=== PATIENT | female | born 1960 | race Caucasian/White ===

== ENCOUNTER 2018-09-05 09:18 | Observation (INO) | payer MEDICARE ==
--- NOTE | 2018-08-20 10:02 | HP ---
PREOPERATIVE HISTORY AND PHYSICAL: DATE OF ADMISSION/SURGERY: 09/05/18 DATE OF OFFICE VISIT: 08/17/18 ATTENDING SURGEON: Dr. Anh White.* (DICTATED BY IRIS AMES) PROCEDURE: Right shoulder arthroscopic rotator cuff repair, decompression and debridement and right wrist open carpal tunnel release. CHIEF COMPLAINT: Right shoulder pain. HISTORY OF PRESENT ILLNESS: Viola is a 57-year-old female who presents to the clinic for right shoulder pain due to a rotator cuff tear. She has had a prior repair in the past. She also has right carpal tunnel syndrome. She has failed conservative measures, therefore agreed to undergo a right shoulder arthroscopic rotator cuff repair, decompression and debridement and right wrist open carpal tunnel release with Dr. White on 09/05/18. 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 PAST SURGICAL HISTORY: Tubal ligation, hysterectomy, bowel resection, rotator cuff repair in 2009 and two bladder lifts. The patient denies complications with anesthesia. MEDICATIONS: 1. Metformin 500 mg 1 by mouth once a day. 2. Lidoderm 5% one by mouth every 12 hours. 3. Cyclobenzaprine 10 mg 1 by mouth 2 to 3 times a day. 4. Lexapro 5 mg 1 by mouth daily. 5. Lipitor 20 mg daily. 6. Lisinopril 5 mg daily. 7. Probiotic 1 daily. 8. Vitamin D3 1000 units 1 capsule daily. ALLERGIES: MORPHINE, PENICILLIN, and ADHESIVE. FAMILY HISTORY: Positive for ulcerative colitis and hepatic encephalopathy, diabetes and high blood pressure on her mom's side. SOCIAL HISTORY: She lives with her spouse. She is disabled. She denies tobacco use. She reports occasional alcohol consumption. She is right hand dominant. REVIEW OF SYSTEMS: A 14-point review of systems was reviewed with the patient. Positive for current complaint, otherwise negative. 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 Denies history of DVT or PE. Denies fever, chills, chest pain, or shortness of breath. PHYSICAL EXAMINATION GENERAL: A 57-year-old well-developed, well-nourished female, no acute distress. VITAL SIGNS: Height 59, weight 206. Pulse 114, blood pressure 138/88, temperature 98.4, BMI 41.6. HEENT: Normocephalic, atraumatic. PERRLA. Throat clear. NECK: Supple. PULMONARY: Lungs are clear to auscultation bilaterally. No wheezing, rhonchi, or rales. CARDIO: Regular rate and rhythm. S1, S2. No murmurs, gallops, or rubs. No edema. ABDOMEN: Positive bowel sounds. Soft, nontender. NEUROLOGIC: Alert and oriented x3. Cranial nerves grossly intact. MUSCULOSKELETAL: Right upper extremity: Skin is intact. No warmth or erythema. Well-healed surgical incision. Forward flexion 150 with pain. Abduction 140 with pain. External rotation is 70. +4/5 strength to rotator cuff testing with pain. Positive impingement, Speed, Fan, and Casper. +2 radial pulse. Sensation is intact to light touch distally. STUDIES: MRI of the right shoulder revealed full-thickness tear of the supraspinatus tendon and partial-thickness tearing of the infraspinatus tendon. IMPRESSION: Right shoulder rotator cuff tear, right wrist carpal tunnel syndrome. PLAN: The patient is scheduled to undergo right shoulder arthroscopic rotator cuff repair, decompression, debridement and right wrist open carpal tunnel release with Dr. White on 09/05/18. She is getting cleared by her primary care physician as well as her finishing manager before surgery. Percocet will be used for postop management and Keflex for antibiotic prophylaxis since she it is a revision surgery. She will follow up in 10 to 14 days postop for followup and suture removal. IRIS AMES [id number]/[facility] #: [id number] MTDD
[~2018-09-05 09:18] MED LIST: Acetaminophen TAB* 325 MG PO ONE; Buffered Lidocaine 1% SYRIN* 1 ML/SYRINGE INTRADERM ONE; Famotidine TAB* 20 MG PO ONE; Gabapentin CAP(*) 300 MG PO ONE; Lactated Ringers 1000 ML Bag* 1,000 ML IV SCH; celeCOXIB CAP* 200 MG PO ONE
[2018-09-05] MEDS ORDERED: celeCOXIB CAP* 100 MG ONE (10:12)
[2018-09-05] MEDS ORDERED: Famotidine IV* 10 MG/ML 2 ML (20 mg) ONE (10:12)
[2018-09-05] MEDS ORDERED: Acetaminophen TAB* 325 MG ONE (10:12)
[2018-09-05] MEDS ORDERED: ceFAZolin 2 GM in NS PREMIX(*) 2 GM/100 ML BAG IVPB ONE (10:12)
[2018-09-05] MEDS ORDERED: Gabapentin CAP(*) 300 MG ONE (10:12)
[2018-09-05] MEDS ORDERED: Famotidine TAB* 20 MG ONE (11:11)
[2018-09-05] MEDS ORDERED: fentaNYL* 50 MCG/ML 5 ML VIAL (250 MCG VIAL) ONE (11:48)
[2018-09-05] MEDS ORDERED: Rocuronium* 10 MG/ML VIAL ONE (11:48)
[2018-09-05] MEDS ORDERED: Midazolam* 1 MG/ML 2 ML VIAL (2 MG) ONE (11:49)
[2018-09-05] MEDS ORDERED: [UNRECOGNIZED DRUG - OTHER] IV SLOW PU ONE (13:00)
[2018-09-05] MEDS ORDERED: [UNRECOGNIZED DRUG - OTHER] IV SLOW PU ONE (13:00)
[2018-09-05] MEDS ORDERED: HYDROmorphone INJ1* 1 MG/ML SYRINGE ONE (14:20)
[2018-09-05] MEDS ORDERED: KETAMINE HCL* 50 MG/ML 10 ML VIAL ONE (14:20)
[2018-09-05] MEDS ORDERED: Acetaminophen IV 1GM/100ML * 1,000 MG/100 ML VIAL IVPB ONE (14:28)
[2018-09-05] MEDS ORDERED: HYDROmorphone INJ1* 1 MG/ML SYRINGE IV PRN (14:28)
[2018-09-05] MEDS ORDERED: DiMENhydriNATE IV* 50 MG/ML VIAL IV PUSH PRN (14:28)
[2018-09-05] MEDS ORDERED: Naloxone* 0.4 MG/ML 1 ML VIAL IV PRN (14:28)
[2018-09-05] MEDS ORDERED: PROCHLORPERAZINE INJ 5 MG/ML 2 ML VIAL IV PRN (14:28)
[2018-09-05] MEDS ORDERED: fentaNYL* 50 MCG/ML 2 ML VIAL (100 MCG VIAL) IV PRN (14:28)
[2018-09-05] MEDS ORDERED: oxyCODONE TAB* 5 MG TAB PO PRN ×2 (14:28→16:17)
[2018-09-05] MEDS ORDERED: Ropivacaine* 2 MG/ML 20 ML VIAL (0.2%) ONE (14:44)
[2018-09-05] MEDS ORDERED: Ondansetron INJ* 2 MG/ML VIAL ONE (15:19)
[2018-09-05] MEDS ORDERED: Polyethylene Glycol 3350* 17 GM PACKET PO PRN (16:17)
[2018-09-05] MEDS ORDERED: Ondansetron ODT TAB* 4 MG PO PRN (16:17)
[2018-09-05] MEDS ORDERED: diPHENhydraMINE IV* 50 MG/ML 1 ml VIAL (BENADRYL) IV PRN (16:17)
[2018-09-05] MEDS ORDERED: Ondansetron INJ* 2 MG/ML VIAL IV PRN (16:17)
[2018-09-05] MEDS ORDERED: Cyclobenzaprine TAB* 10 MG PO PRN ×2 (16:17→16:36)
[2018-09-05] MEDS ORDERED: diPHENhydraMINE PO* 25 MG PO PRN (16:17)
[2018-09-05] MEDS ORDERED: traZODone TAB* 50 MG TAB PO PRN (16:17)
[2018-09-05] MEDS ORDERED: oxyCODONE/Acetamin 5/325 MG* TAB PO PRN (16:17)
[2018-09-05] MEDS ORDERED: Bisacodyl SUPP* 10 MG SUPP PR PRN (16:17)
[2018-09-05] MEDS ORDERED: Magnesium Hydroxide LIQ* 30 ML UDC PO PRN (16:17)
--- NOTE | 2018-09-05 16:50 | PN ---
Progress Note - Progress Note Date of Service: 09/05/18 SOAP: Subjective: []First dose of Factor VIII @ 1300 today just prior to surgery, now in PACU. Feels like room is spinning and very out of it. Very thirsty. Denies pain at this time. Very aware of plan for Factor VIII. 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 Factor VIII level prior to surgery 49%. Plan: []1. Post op orders per ortho 2. Factor VIII 2500 u given 30 min before surgery @ 1300 and will need q12 hrs. x2 then q24 hours to complete 10 days - next dose due @ 0100 09/06 and then 1300 09/06 - can d/c home after 1300 dose tomorrow - completion of 10 days q24 hrs to start 09/07 with home infusion via midline ( she has done this before) therefore will maintain midline on d/c Pt. to f/u with hematology in 1-2 weeks post op
[2018-09-05] MEDS ORDERED: Lisinopril TAB* 5 MG PO SCH (18:00)
[2018-09-05] MEDS: Lactated Ringers 1000 ML Bag* 1,000 ML IV SCH (18:23)
[2018-09-05] MEDS: oxyCODONE/Acetamin 5/325 MG* TAB PO PRN (18:39)
[2018-09-05] MEDS: metFORMIN* 1,000 MG TAB PO SCH (18:40)
[2018-09-05] MEDS: Acetaminophen TAB* 325 MG PO SCH (20:20)
[2018-09-05] MEDS: Docusate CAP* 100 MG PO SCH (20:24)
[2018-09-05] MEDS ORDERED: Atorvastatin* 20 MG TAB PO SCH (21:00)
[2018-09-05] MEDS ORDERED: Escitalopram * 5 MG TAB PO SCH (21:00)
[2018-09-05] MEDS: ceFAZolin 1 GM ADVAN(*) 1 GM in NS 0.9% 50 ML* 50 ML IVPB SCH (21:40)
[2018-09-06] MEDS: oxyCODONE/Acetamin 5/325 MG* TAB PO PRN (00:26)
[2018-09-06] MEDS: [UNRECOGNIZED DRUG - OTHER] SLOW PUSH SCH ×2 (01:01→13:22)
[2018-09-06] MEDS: [UNRECOGNIZED DRUG - OTHER] IV SLOW PU SCH ×2 (01:02→13:22)
[2018-09-06] MEDS: Lactated Ringers 1000 ML Bag* 1,000 ML IV SCH (03:19)
--- NOTE | 2018-09-06 03:45 | OP ---
CC: PCP; Dr. Curiel.* OPERATIVE REPORT: DATE OF OPERATION: 09/05/18 - Inpatient, room SSU 341-01 DATE OF : 64 ATTENDING SURGEON: Anh White MD. MANAGER BILLING: IRIS Talamantes. An produce assistant was needed for the shoulder portion of the case and not through the carpal tunnel portion of the case, but was required for retraction, positioning, and placement of anchors. ANESTHESIOLOGIST: Dr. Tapia. ANESTHESIA: General. PRE-OP DIAGNOSES: 1. Right shoulder re-tear of previously repaired rotator cuff with recurrent impingement. 2. Right carpal tunnel syndrome. POST-OP DIAGNOSES: 1. Right shoulder re-tear of previously repaired rotator cuff with recurrent impingement. 2. Right carpal tunnel syndrome. OPERATIVE PROCEDURES: Open right carpal tunnel release. Right shoulder arthroscopy with revision repair of the rotator cuff, supraspinatus and infraspinatus. Revision decompression with acromioplasty. Glenohumeral debridement. COMPLICATIONS: None. ESTIMATED BLOOD LOSS: Minimal. IMPLANTS: Two Healicoils and 2 MULTIFIXES. TOURNIQUET TIME: Total of 10 minutes. 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 INDICATIONS: Viola Luis is a 57-year-old female who has had persistent shoulder pain for some time. She was also diagnosed with carpal tunnel syndrome. After extensive discussion with the patient and after an MRI that confirmed a rotator cuff tear, she has elected to proceed with surgical treatment. Risks and benefits were discussed at length and included but were not limited to bleeding, infection, damage to nerves; vessels; surrounding structures, wound nonhealing, persistent pain, need for further surgery, scarring, stiffness, incomplete relief of symptoms, risks of anesthesia, persistent numbness, worsening pain, worsening arthritis, bleeding, stroke, heart attack, and . She has elected to proceed. She underwent medical risk optimization. DESCRIPTION OF PROCEDURE: The patient was greeted in the preoperative area by the attending surgeon. The correct extremity, both the right wrist and the shoulder, was marked by the attending surgeon. The consent was confirmed and the paperwork was completed. The patient then underwent factor VIII as per the hematology guidelines. The patient was then brought back to the operating suite. She was placed in the supine position on the operating room table. She then underwent general anesthesia with endotracheal intubation, after which the first portion of the case began, which was the carpal tunnel release. An unsterile tourniquet was placed high on the forearm. The arm board was brought to the table. The right arm was then prepped and draped in the usual sterile fashion beginning with chlorhexidine soap, scrub, and alcohol wipe and a final prep with ChloraPrep. After appropriate surgical pause indicating site, side, procedure, and administration of antibiotics, the limb was exsanguinated and the tourniquet was inflated to 250 mmHg. An incision in line with the carpal tunnel at the capitellar line where it intersected with the radial edge of the fourth digit, a 15 blade was used to make an incision through the skin. Soft tissues were carefully dissected to expose the palmar fascia, which was then incised. The carpal tunnel was identified as well as an accessory muscle belly, but the decision was to treat more laterally. The carpal tunnel was then excised using a deep 15 blade, after which tenotomy scissors were used to help to spread. The carpal tunnel was then slowly released first distally. All adhesions were released, after which it was totally free. The nerve was found to be somewhat inflamed. There was synovitis in the carpal tunnel as well. The dissection was then taken more proximally and the remainder of the carpal tunnel was released proximally. The wrist was taken through range of motion. There was no evidence of impingement. A freer was then used to gently make sure that the carpal tunnel was fully released. The wounds were then copiously irrigated with sterile saline. The incision was closed with 4- 0 nylon in an interrupted fashion. The wound was then injected with 0.2% ropivacaine superficially and sterile dressings were applied. At this point, attention was directed to the shoulder. The patient was then positioned in the left lateral decubitus position with all bony prominences padded. She was secured with a pegboard. The right arm was placed in traction with a sleeve over her previously dressed wound. An axillary roll was placed. The right shoulder was then prepped and draped in the usual sterile fashion beginning with chlorhexidine soap, scrub, and alcohol wipe and a final prep with ChloraPrep. After appropriate surgical pause indicating site, side, procedure, and administration of antibiotics, the standard posterolateral portal was made with an 11 blade. Soft tissues were carefully dissected. The 11 blade was then used to make a posterolateral portal. Scope was advanced through the joint. The joint was examined. There was abundant synovitis. There were grade 0 to 1 changes in the glenohumeral joints. The head of the biceps had already been tenotomized. The undersurface of the rotator cuff had previous sutures that were placed. It looked like they were placed more anteriorly than typically. The sutures were then removed as these were loose and in the tendon and were not doing any kind of structural support. These foreign bodies were then removed. The inferior recess was intact. The subscap was intact. There was evidence of at least a high-grade partial-thickness tear versus a full- thickness tear of the undersurface of the supraspinatus tendon. Once the debridement of the anterior, posterior, superior labrum and the removal of the foreign bodies were done (which were about 4 deep sutures and knots), the attention was directed to the subacromial space. The scope was positioned in the subacromial space. A lateral portal was made in an outside fashion. Shaver was used to debride back the abundant bursa that was present that was extending to a significant amount posteriorly. There was evidence of a full-thickness tear of the rotator cuff that was bursal-sided. The previous anchors were identified and the bone had an irregular appearance. There was still remnant of an anterolateral spur that was present. The electrocautery device was used to skeletonize the acromion and a 4-0 oval issa was then used to do a revision acromioplasty. Attention was then directed to the rotator cuff. This was again a revision tendon repair. The cuff attachments and adhesions were debrided back to find good cuff tissue. The cuff was found to have a moderate- to large-sized L- shaped tear and this may be why she failed as. Once the cuff was then anatomically reduced, the decision was made to proceed with anchor placement. First, the greater tuberosity was prepared in the usual fashion with the electrocautery device, the rasp as well as the 4-0 oval issa to gently decorticate. The patient had excellent bone quality. Through 2 separate stab incisions, 4.75 Healicoils were placed with excellent purchase. The bone had to be tapped due to her bone quality. These were then passed through the tendon to allow for repair of the large L-shaped tear. A microfracture was done also of the greater tuberosity to allow for further points of healing and fixation. Once the sutures were passed, these were then tied down using arthroscopic knot tying technique. These were passed in a horizontal mattress configuration. There was a small dog-ear, so a separate #2 Ortho Braid was passed through that as well. One strand of each of the knots and both strands of the lone Ortho Braid were then passed through a MULTIFIX anchor, which was placed anterolaterally for lateral row fixation. This helped to nicely reduce and compress the rotator cuff. The remaining suture strands were then passed through a MULTIFIX anchor which was placed posterolaterally. This allowed for replacement. Because this was a revision case, the decision was made to do Regeneten patch to augment. The patient is very young. At this point, the Regeneten patch was then placed. The Regeneten patch was brought to the field and it was placed carefully over the previously repaired rotator cuff. Through separate incisions, different cannulas were used to place the tendon anchors carefully and then once they were attached, laterally the bone simi were placed. This allowed for securing without disrupting the rotator cuff repair. Final images were obtained. The wounds were copiously irrigated with sterile saline. The wounds were closed with 3-0 nylon. The wounds were injected with 0.3% ropivacaine. Sterile dressings were applied. A Cryo/Cuff and an UltraSling were applied. She was then taken out of traction and a splint was applied to the right wrist. The extremity was pink and well perfused. The patient was then awoken from anesthesia and transferred to PACU in stable condition. POSTOPERATIVE PLAN: She will be admitted for another dose of her factor VIII overnight and she will have another dose in the morning and then discharged on postop day 1. She will receive 24 hours of postoperative antibiotics. We will follow her in the hospital and I will see the patient back in 10 to 14 days in the office postop. [id number]/[facility] #: [id number] KIM
[2018-09-06] MEDS: Acetaminophen TAB* 325 MG PO SCH ×2 (04:59→11:45)
[2018-09-06] MEDS: ceFAZolin 1 GM ADVAN(*) 1 GM in NS 0.9% 50 ML* 50 ML IVPB SCH ×2 (05:41→13:41)
[2018-09-06 05:43] LABS: Hematocrit 30 % (33-41); Hemoglobin 10.2 g/dL (12.0-16.0)
[2018-09-06 06:01] LABS: BUN/Creatinine Ratio 21.5 (8-20); Calcium 8.2 mg/dL (8.6-10.3); EGFR African American 114.5 (>60); EGFR Non-African American 94.6 (>60); Potassium 4.3 mmol/L (3.5-5.0)
[2018-09-06] MEDS: metFORMIN* 1,000 MG TAB PO SCH (08:29)
[2018-09-06] MEDS ORDERED: Ascorbic Acid TAB* 500 MG PO SCH (09:00)
[2018-09-06] MEDS: Docusate CAP* 100 MG PO SCH (09:05)
[2018-09-06] MEDS ORDERED: traMADol TAB* 50 MG ONE (11:38)
[2018-09-06 12:23] VITALS: BP 127/57
[2018-09-06] MEDS ORDERED: traMADol TAB* 50 MG PO PRN (13:49)
--- NOTE | 2018-09-06 14:11 | PN ---
Progress Note - Progress Note Date of Service: 09/06/18 SOAP: Subjective: []Pt seen at bedside, she is feeling well. Denies CP, SOB, dizziness or nausea. RUE pain is well controlled Objective: []General: Well appearing, NAD RUE: Right shoulder dressing and sling CDI. Wrist dressing CDI. F/E wrist and digits intact. Sensation intact to light touch distally, capillary refill less than two seconds distally. 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 x2 then q24 hours to complete 10 days - next dose due @ 0100 09/06 and then 1300 09/06 - can d/c home after 1300 dose tomorrow - completion of 10 days q24 hrs to start 09/07 with home infusion via midline ( she has done this before) therefore will maintain midline on d/c Pt. to f/u with hematology in 1-2 weeks post op Vital Signs Temp 97.8 F 09/06/18 11:25 Pulse 90 09/06/18 11:25 Resp 18 09/06/18 13:46 BP 127/57 09/06/18 11:25 Pulse Ox 92 09/06/18 11:25 Intake & Output 09/05/18 09/06/18 09/06/18 18:59 06:59 18:59 Intake Total 1800 1940 460 Output Total 20 1000 500 Balance 1780 940 -40 Weight 211 lb Intake: IV Fluids 1800 1040 LR 1800 985 cefazolin 55 Oral 900 460 Output: Urine 1000 500 Estimated Blood Loss 20 Other: Estimated Void Large # Voids 2 Laboratory Last Values Hgb 10.2 g/dL (12.0-16.0) L 09/06/18 05:30 Hct 30 % (33-41) L 09/06/18 05:30 Sodium 134 mmol/L (135-145) L 09/06/18 05:30 Potassium 4.3 mmol/L (3.5-5.0) 09/06/18 05:30 Chloride 103 mmol/L (101-111) 09/06/18 05:30 Carbon Dioxide 28 mmol/L (22-32) 09/06/18 05:30 Anion Gap 3 mmol/L (2-11) 09/06/18 05:30 BUN 14 mg/dL (6-24) 09/06/18 05:30 Creatinine 0.65 mg/dL (0.51-0.95) 09/06/18 05:30 Est GFR ( Amer) 114.5 (>60) 09/06/18 05:30 Est GFR (Non-Af Amer) 94.6 (>60) 09/06/18 05:30 BUN/Creatinine Ratio 21.5 (8-20) H 09/06/18 05:30 Glucose 155 mg/dL (70-100) H 09/06/18 05:30 POC Glucose (mg/dL) 124 mg/dL (70-100) H 09/05/18 16:18 Calcium 8.2 mg/dL (8.6-10.3) L 09/06/18 05:30
--- NOTE | 2018-09-06 14:24 | DS ---
Orthopedic Discharge Summary - Discharge Summary Date of Admission:09/05/18 Date of Discharge: 09/06/18 Date of Surgery: 09/05/18 Attending Orthopedic Provider: Dr White Pre-operative Diagnosis: R shoulder pain, R wrist pain Operative Procedure: Right shoulder rotator cuff repair, Right wrist carpal tunnel release History: LAKESHIA BERRY is a 57 year old F with increasingly severe right shoulder and wrist pain. Patient has failed conservative management and has elected to undergo a right rotator cuff repair and right wrist carpal tunnel release Hospital Course: LAKESHIA was admitted to [facility] on 09/05/18. Patient underwent a [right rotator cuff repair and right wrist carpal tunnel release] without complication followed by a brief recovery in PACU and transfer to the Short Stay Surgical Unit in stable condition. Our hematology service and occupational therapy also participated in this patients care. Post-op day 1: patient was alert and in no acute distress. Dressing and sling was clean, dry and intact. She was neurovascularly intact distally. Pt received factor 8 per hematology protocol. Patient was deemed to be medically and orthopedically stable for discharge home. Home Medications Medication Instructions Recorded Confirmed Type [id number] Es (Nf) 1 dose PO Q12HR PRN 08/27/18 09/05/18 History [Excedrin Extra Strength 250-250-65 mg (NF)] Ascorbic Acid TAB* [Vitamin C 1,000 mg PO QAM 08/27/18 09/05/18 History TAB*] Atorvastatin* [Lipitor 20 MG*] 20 mg PO 2100 08/27/18 09/05/18 History Cholecalciferol (Vitamin D3) 1,000 unit PO QAM 08/27/18 09/05/18 History [Vitamin D3] Cyclobenzaprine TAB* [Flexeril 10 10 mg PO BID PRN 08/27/18 09/05/18 History MG TAB*] Escitalopram * [Lexapro 5 mg (NF)] 5 mg PO BEDTIME 08/27/18 09/05/18 History Iron 1 dose PO QAM 08/27/18 09/05/18 History Lisinopril TAB* [Prinivil TAB 5 5 mg PO QPM 08/27/18 09/05/18 History MG*] Naproxen Sodium [Aleve] 220 mg PO DAILY PRN 08/27/18 09/05/18 History metFORMIN* [Glucophage 1000 MG TAB 1,000 mg PO 0800,1700 08/27/18 09/05/18 History *] Antihemophilic Factor VIII* 2,500 unit IV DAILY 09/05/18 09/05/18 History [Afstyla*] Acetaminophen TAB* [Tylenol TAB*] 975 mg PO Q8H PRN tab 09/06/18 Rx Docusate CAP* [Colace Cap*] 100 mg PO BID #90 cap 09/06/18 Rx oxyCODONE/Acetamin 5/325 MG* 1 tab PO Q4H PRN tab MDD 6 09/06/18 Rx [Percocet 5/325 TAB*] oxyCODONE/Acetamin 5/325 MG* 2 tab PO Q4H PRN 7 Days #30 tab 09/06/18 Rx [Percocet 5/325 TAB*] MDD 6 Discharge condition: stable Discharge instruction: Keep sling on at all times except hygiene. Ok to bend and straighten elbow for hygiene. No movement of the shoulder. No lifting pushing or pulling with your right hand. Keep the wrist splint clean dry and intact until post op visit Ok to change shoulder dressing on Friday 09/08. Remove all of dressing, ok to shower but use a trash bag or cast bag to keep wrist splint covered. Redress shoulder incision with gauze and tape or bandaid. Do not soak incision in water Percocet 5/325 mg take 1 tab every 4-6 hours as needed for pain, max of 6 tabs in a day Continue Factor [address] Curiel F/U with Dr. White 10-14 days post op Call the orthopedic office for increased pain, redness, fever or chills Go to the emergency room with shortness of breath or chest pain For any questions regarding factor [address] Curiel's office
== END 2018-09-06 15:17 | disposition home or self-care (01) ==
LOC: OR 09:18 → SSU 17:45
PROVIDERS: ADMIT Orthopaedic Surgery; ATTEND Orthopaedic Surgery
DX: M75.120 Complete rotator cuff tear or rupture of unspecified shoulder, not specified as traumatic (principal); G56.01 Carpal tunnel syndrome, right upper limb; M25.511 Pain in right shoulder; Z88.0 Allergy status to penicillin; Z88.6 Allergy status to analgesic agent; I10 Essential (primary) hypertension; D64.9 Anemia, unspecified; F32.9 Major depressive disorder, single episode, unspecified; Z98.51 Tubal ligation status; D66 Hereditary factor VIII deficiency
CPT/HCPCS: 36415; 80048; 85014; 85018; 96374; A9270-GY; C1713; G0378; J0690; J1170; J2250; J2405; J2795; J3010; J7192